=== PATIENT | female | born 1980 | race Caucasian/White ===

== ENCOUNTER 2018-06-09 06:08 | Inpatient (IN) | payer OTHER ==
[~2018-06-09] VITALS: Ht 152.4 cm; Wt 99.3 kg
--- NOTE | 2018-06-10 07:32 | Operative Report ---
Operative/Inv Procedure Report Surgery Date: 06/09/18 Name of Procedure: Elective repeat section Via Pfannenstiel and bilateral tubal ligation Pre-Operative Diagnosis: History of previous , desires permanent sterilization Post-Operative Diagnosis: Same Estimated Blood Loss: 800 ml Surgeon/Block And Case Maker: Dilcia Gusman MD, MD, Michael Anesthesia: block Drains: Nguyen Specimens: Portions of right and left fallopian tube, placenta Complications: None Condition: Stable Operative/Procedure Note Note: The patient was taken to the operating room where spinal anesthesia was administered without difficulty. She was then placed in dorsal supine position with a leftward tilt. She was prepped and draped in the usual sterile fashion. A Pfannenstiel skin incision was then made with the scalpel and carried through to the underlying layer fascia with the Bovie. The Bovie was then used to carefully incise the fascia in layers. The inferior aspect of the fascial incision was grasped with a Kilmichael clamps, elevated and dissected off of the rectus muscles with the Brown scissors. Attention was then turned to the superior aspect of the fascial incision which was grasped with a Kilmichael clamps, elevated and sharply dissected off the rectus muscles with the Brown scissors. The rectus muscles were then in the midline. The peritoneum was then bluntly entered. Diffuse filmy adhesions of the omentum to the uterus were noted. Sharp dissection of the adhesions was performed with the Metzenbaum scissors. The bladder blade was inserted. The vesicouterine peritoneum was then identified and the bladder flap was sharply created. The bladder blade was then reinserted. The uterine incision was then made in the lower uterine segment with the scalpel. The incision was extended bluntly. The amniotic membranes were ruptured with the Allis clamp. Clear fluid was noted. The infant was then delivered without difficulty from PAPO position. The mouth and nose were bulb suction. The cord was clamped and cut. The was handed off to the waiting pediatricians. Cord gases were sent. With fundal massage the placenta did not separate from the uterus. Upon manual removal of the placenta it was noted to be adherent to the endometrium. Inspection of the placenta showed that it was intact. The uterus was then exteriorized. The uterus was cleared of all clots and debris. The uterine incision was closed with 0 Vicryl in a running locking fashion. 3 [id number] sutures were also applied and excellent hemostasis was noted. Attention was then turned to the patient's left fallopian tube. It was verbally confirmed that the patient wanted to proceed with the tubal ligation. The tube was noted to be adherent to the left lateral aspect of the uterus. Small knuckle of tube was grasped with the Lulu clamp, tied with plain suture 2, and removed sharply with the Metzenbaum scissors. The tubal ends were cauterized and excellent hemostasis was noted. Attention was then turned to the patient's right fallopian tube which was identified and noted to be adherent to the right side of the uterus. A small knuckle of tube was grasped with the Lulu clamp, tied with plain suture 2, and excised with the Metzenbaum scissors. A small amount of bleeding was noted from the tube which was then sutured ligated with 2-0 Vicryl 2. Excellent hemostasis was noted. The uterus was then returned to the patient's abdomen. Beatriz was then applied to the uterine incision and the right adnexa at the site of the tubal ligation. Excellent hemostasis was noted again. Both tubes were once again visualized and good hemostasis was noted after the gutters were cleared of all clots and debris. The fascia was then closed with 0 Vicryl in a running fashion. The subcuticular layer was closed with 2-0 Vicryl in an interrupted fashion. The skin was closed with 4-0 Vicryl in a subcuticular fashion. All counts were reported to be correct 2. Patient was taken to the recovery room in stable condition.
[2018-06-10 08:07] LABS: ABSOLUTE BASOPHIL COUNT 0 /CUMM (0.0-0.2); ABSOLUTE EOSINOPHIL COUNT 0 /CUMM (0.0-0.7); ABSOLUTE GRANULOCYTE CT 12.4 /CUMM (1.4-6.5); ABSOLUTE LYMPH COUNT 1.2 /CUMM (1.2-3.4); ABSOLUTE MONOCYTE COUNT 1.2 /CUMM (0.10-0.60); BASOPHIL % 0 % (0.0-2.0); EOSINOPHIL % 0.3 % (0-5); GRANULOCYTE % 83.5 % (42.2-75.2); HEMATOCRIT 29.1 % (37-47); MEAN CORPUSCULAR HGB 30.2 PG (27.0-31.0); MEAN CORPUSCULAR HGB CONC 33.6 G/DL (33.0-37.0); MEAN PLATELET VOLUME 11.6 FL (7.4-10.4); PLATELET COUNT 133 /CUMM (130-400); RBC DISTRIBUTION WIDTH 16.6 % (11.5-14.5); RED BLOOD CELL CT 3.23 /CUMM (4.20-5.40); WHITE BLOOD CELL COUNT 14.9 /CUMM (4.8-10.8)
--- NOTE | 2018-06-10 10:26 | PN- OBGYN ---
Surgical Brief Attending Note Brief Attending Note: POD#1 pt is sitting in chair, no complaints, tolerate diet, cannon d/c'd am, not void yet, flatus(-). PE: VSS Cv RRR Lungs CTA B/l Abdomen: soft, mild tender at incision site, uterus firm, fundus below umbilicus , incision D/C/I, lochia mild. Ext: DCT (-) A/P: 37yo, s/p RLTCS+ BTL,POD#1 1. encourage ambulation and 2. pain management as needed 3.RT PP care
--- NOTE | 2018-06-11 10:57 | PN- OBGYN ---
Surgical Brief Attending Note Brief Attending Note: POD2 Good pain control. Ambulating without difficulty. Tolerating all POs, no N&V. Voiding. +flatus, no BM yet but no urge. working well. afebrile VS normal Abd - soft, NT Fundus - firm, NT Incision - intact under pannus with steri-strips in place, appears clean but very moist Perineum - dry Extr - bilat edema, benign A: normal recovery s/p repeat C/S and BTL. wound moist deep under pannus P: should be ready for discharge in am told patient about Interdry that she could buy online and keep inside pannus for 2-3w (washing and changing), which could help prevent wound infection of dehiscience. postop instructions reviewed.
--- NOTE | 2018-06-12 10:56 | PN- OBGYN ---
Surgical Brief Attending Note Brief Attending Note: POD 3 Pt. is packed, dressed and ready to go home. Good pain control. +small BM and gas. +void. Nursing baby continues to be successful afebrile, VS normal Abd - soft, NT, no mass Fundus - firm, NT Incision - C/D/I, steri-strips in place Perineum - dry Extr - benign A: recovering well s/p repeat C/S P: home today on PO pain meds to office in 2 weeks for incision check postop instructions reviewed with and patient
== END 2018-06-12 12:00 | DRG 766 ==
LOC: GNO 06:08
PROVIDERS: Obstetrics & Gynecology
PROC: 0UB70ZZ Excision of Bilateral Fallopian Tubes, Open Approach (ICD-10-PCS; principal; 2018-06-09)
PROC: 10D00Z1 Extraction of Products of Conception, Low, Open Approach (ICD-10-PCS; principal; 2018-06-09)
DX: O34.211 Maternal care for low transverse scar from previous cesarean delivery (principal); N85.8 Other specified noninflammatory disorders of uterus; Z30.2 Encounter for sterilization; Z3A.39 39 weeks gestation of pregnancy; Z37.0 Single live birth
CPT/HCPCS: GNOS; 87086; J0690; J1650; J1885; J7120